=== PATIENT | female | born 2005 | race Caucasian/White ===

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

== ENCOUNTER → 2023-03-30 | Outpatient (CLI) | payer BC | END | disposition home or self-care (01) | LOC: CARD 12:02 | PROVIDERS: ATTEND Internal Medicine | DX: R00.2 Palpitations (principal) ==

== ENCOUNTER → 2024-09-01 | Outpatient (CLI) | payer OTHER | END | disposition home or self-care (01) | LOC: MRI 02:17 | PROVIDERS: ATTEND Internal Medicine | DX: R42 Dizziness and giddiness (principal); G43.909 Migraine, unspecified, not intractable, without status migrainosus ==

== ENCOUNTER → 2025-06-23 | Outpatient (CLI) | payer OTHER | END | disposition home or self-care (01) | LOC: LAB 12:30 | PROVIDERS: ATTEND Internal Medicine | DX: Z51.81 Encounter for therapeutic drug level monitoring (principal) ==